=== PATIENT | male | born 1955 | race Caucasian/White ===

== ENCOUNTER 2025-08-20 14:29 | Emergency (ER) | payer OTHER, SELFPAY ==
[2025-08-20 14:32] VITALS: BP 134/89
--- NOTE | 2025-08-20 17:28 | ED.GENMED ---
History of Present Illness
General
Chief Complaint: Musculo-Skeletal Complaint
Source: patient
Exam Limitations: none
Time Seen by Provider: 08/20/25 16:52
Nursing documentation reviewed up to this point in time: agreed with
History of Present Illness
History of Present Illness:
69 y/o M with h/o HTN
mechanical trip and fall down 2 steps today when he was trying to prevent grandchild from falling and he landed on bent L knee
unable to fully straighten
able to weight bear with pain
swelling present
nothing taken for pain
no weakness, no deformity, no wounds, no other injuries, denies head/neck pain
Past History
Past History
ED Past Medical History: HTN
ED Past Surgical History: None
Social History
Tobacco: Non-smoker
Alcohol: None
Personal:
Living: with family
Review of Systems
Review of Systems
Allergies reviewed?: Yes
All Other Systems: Not applicable
Phy Exam
Physical Exam
Physical Exam:
GENERAL: Alert , in no apparent distress
HEAD: NCAT
CARDIAC: Regular rate and rhythm, no edema
LUNGS: Clear breath sounds bilaterally, no acute respiratory distress, no wheezes/rales/rhonchi
NEUROLOGICAL: Alert and oriented, no focal neuro deficits, CN intact, 5/5 strength, sensation intact
SKIN: Warm and dry,
MUSCULOSKELETAL: Moderate swelling to the anterior left knee, mild effusion, patient is holding his knee in slight flexion, cannot fully extend, negative straight leg raise
No distal or proximal tenderness, no weakness, neurovascularly intact.
PSYCH: Normal and appropriate interaction.
Course
Orders/Labs/Results
Orders:
Orders
08/20/25 14:34
Knee, Left 4 or More Views [CR Knee - Left 4 Or More View*] Urgent
Comment:
Reason For Exam: injury
Vital Signs
Initial and Last Documented VS:
Initial Vital Signs
Temp Pulse Resp BP Pulse Ox
36.7 C 110 16 134/89 98
08/20/25 14:32 08/20/25 14:32 08/20/25 14:32 08/20/25 14:32 08/20/25 14:32
Last Documented Vital Signs
Temp Pulse Resp BP Pulse Ox
36.7 C 82 16 127/91 97
08/20/25 14:32 08/20/25 18:20 08/20/25 14:32 08/20/25 18:12 08/20/25 18:20
MDM/Problems Addressed
Differential Diagnosis Includes:
Patellar fracture, quad tendon rupture
MDM/Problems Addressed:
69-year-old male with mechanical trip and fall down 2 steps landing on his flexed knee on the left without ability to fully extend, negative straight leg raise, x-ray independently reviewed showing a patellar fracture horizontally with some
displacement. Patient's x-ray findings were discussed with orthopedics on-call, they recommended a long knee immobilizer, weightbearing as tolerated partially with crutches and follow-up in the office
*Pulse Oximetry
SaO2: 98
Oxygen Mode of Delivery: Room air
Patient hypoxic: no (98)
*Critical Care Note
Total Time (30-74mins, 75-104mins- exclusive of procedures): Not Applicable
ED Attending Note
-
Portions of this chart may have been created with voice recognition software.� Occasional wrong word or��sound alike� substitutions may have occurred due to the inherent limitations of voice recognition software.
Discharge Plan
Departure
Patient Disposition: Home (Routine Discharge)
Date of Disposition: 08/20/25
Time of Disposition: 18:11
Patient with high blood pressure during this ER visit?: No
Condition: Fair
Discharge Problem:
Patellar fracture
Instructions: Patella Fracture ED
Prescriptions:
No Action
amoxicillin-pot clavulanate 1 TABLET tablet
1 tab PO Q12 Qty: 13 0RF
Referrals:
Irasema Jacome I., DO [Active, Orthopedics] - Follow up in 1 week
Bartolome Caro MD [Family Provider, [facility]]
Activity Restrictions/Additional Instructions:
You broke your patella which is your kneecap. Keep the brace on all day and night. Remove it for showering purposes only. Call for an appointment on Friday with [facility]. You can weight-bear as tolerated with the crutches or a walker.
Ice off-and-on as needed. Tylenol or ibuprofen for pain. Return for any concerns
Interventions
Interventions:
*Risk Screen - Suicide Last Done: 08/20/25 14:32
*General Assessment Last Done: 08/20/25 17:48
*Neglect/Abuse Screening Last Done: 08/20/25 14:32
*ED- Fall Risk Assessment Last Done: 08/20/25 17:48
*ED COVID-19 Vaccine History Last Done: 08/20/25 17:48
*ED Influenza Vaccine History Last Done: 08/20/25 17:48
*Nursing Disposition Last Done: 08/20/25 18:28
ED-Musculoskeletal Assessment Last Done: 08/20/25 17:34
Discharge Date and Time
Discharge Date/Time: 08/20/25 18:31
Print Language: VIET[place]ESE
[2025-08-20 17:33] VITALS: BMI 22.1
[2025-08-20 17:40] VITALS: BP 140/94
[2025-08-20 17:47] VITALS: BP 141/101
[2025-08-20 18:00] VITALS: BP 124/88
[2025-08-20 18:12] VITALS: BP 127/91
== END 2025-08-20 18:31 | disposition home or self-care (01) ==
LOC: EMR 14:29
PROVIDERS: EMERGENCY PHYSICIAN Emergency Medicine; FAMILY PHYSICIAN Family Medicine
DX: S82.032A Displaced transverse fracture of left patella, initial encounter for closed fracture (principal); W10.9XXA Fall (on) (from) unspecified stairs and steps, initial encounter; I10 Essential (primary) hypertension
CPT/HCPCS: 99283; 73564